=== PATIENT | male | born 1945 | race Caucasian/White ===

== ENCOUNTER 2025-05-26 07:55 | Day surgery (SDC) | payer OTHER ==
[2025-05-26] VITALS (11 sets, daily range): BP systolic 93–124; BP diastolic 42–76; PULSE 73–89; RESP 14–18; TEMP 97.2–97.6
[~2025-05-26] VITALS: Ht 175.3 cm; Wt 100.2 kg
[~2025-05-26 07:55] MED LIST: APIX5TAB PO; ATOR-2 PO; ERGO2000 PO; FINA5TAB41 PO; FLEC100T3 PO; LISI10TA24 PO; MULT-1203 PO; OMEP-420 PO; TAMS-55 PO
[2025-05-26] MEDS: 0.9%NACL 1000ML 1,000 ML IV ONE (09:29)
== END 2025-05-26 13:01 | disposition home or self-care (01) ==
LOC: ENDO 07:55 → DAH 07:55 → ENDO 13:01
PROVIDERS: ATTEND Internal Medicine Gastroenterology
DX: K52.9 Noninfective gastroenteritis and colitis, unspecified (principal); K57.30 Diverticulosis of large intestine without perforation or abscess without bleeding; K64.0 First degree hemorrhoids; K63.89 Other specified diseases of intestine; I10 Essential (primary) hypertension; I25.10 Atherosclerotic heart disease of native coronary artery without angina pectoris; E78.5 Hyperlipidemia, unspecified; F41.9 Anxiety disorder, unspecified; M19.90 Unspecified osteoarthritis, unspecified site; N40.0 Benign prostatic hyperplasia without lower urinary tract symptoms; Z98.0 Intestinal bypass and anastomosis status; Z85.038 Personal history of other malignant neoplasm of large intestine; Z79.899 Other long term (current) drug therapy; Z98.890 Other specified postprocedural states
CPT/HCPCS: 45380; J1200; J7030 ×2; J2704; A4215 ×2; A4223; A4222; A4221; A4663; A4606; J3490